=== PATIENT | female | born 1985 | race Caucasian/White ===

== ENCOUNTER 2018-05-16 11:11 | Emergency (ER) | payer SELFPAY ==
[~2018-05-16] VITALS: Ht 165.1 cm; Wt 59.0 kg
--- NOTE | 2018-05-16 11:20 | NUR ---
MSE DONE BY DR LAWRENCE ROOM 03A.
[2018-05-16] MEDS ORDERED: [UNRECOGNIZED DRUG - OTHER] (11:21)
[2018-05-16 11:32] VITALS: BP 121/88
--- NOTE | 2018-05-16 11:34 | NUR ---
Patient discharged to home in stable conditon. Written and verbal after care instructions given. Patient verbalizes understanding of instructions.
== END 2018-05-16 11:37 | disposition home or self-care (01) ==
LOC: ER 11:13
DX: L01.09 Other impetigo (principal); B95.61 Methicillin susceptible Staphylococcus aureus infection as the cause of diseases classified elsewhere; Z79.899 Other long term (current) drug therapy
CPT/HCPCS: 99281; A4663